=== PATIENT | female | born 1990 | race Caucasian/White ===

== ENCOUNTER 2018-05-10 05:13 | Inpatient (IN) ==
[2018-05-10] MEDS ORDERED: Naloxone Inj 0.4 MG/ML Vial IV.PUSH PRN ×2 (06:23→16:29)
[2018-05-10] MEDS ORDERED: Oxytocin 30 Units/500ml Premix 30 UNITS/500 ML BAG IV.SIG ONE (06:23)
[2018-05-10] MEDS ORDERED: fentaNYL Citrate Inj 100 MCG/2 ML Ampul IV.PUSH PRN ×2 (06:23)
[2018-05-10] MEDS ORDERED: Sod Chloride 0.9% Inj 1,000 ML IV.CONT PRN (06:23)
[2018-05-10] MEDS ORDERED: Sodium Chlor 0.9% Inj 500 ML IV.SIG PRN (06:23)
[2018-05-10] MEDS ORDERED: Oxytocin 30 Units/500ml Premix 30 UNITS/500 ML BAG IV.SIG PRN (06:25)
[2018-05-10] MEDS ORDERED: Citric Acid/Sodium Citrate Liq 30 ML UDC PO SCH (06:30)
[2018-05-10 07:24] LABS: Baso # (Auto) 0.1 th/mm3 (0.0-0.2); Baso % (Auto) 0.6 % (0.0-2.0); Eos # (Auto) 0.2 th/mm3 (0.0-0.4); Eos % (Auto) 2.3 % (0.0-4.0); Hematocrit 33.7 % (35.0-46.0); Hemoglobin 11.9 gm/dL (11.6-15.3); Lymph # (Auto) 2.2 th/mm3 (1.0-4.8); Lymph % (Auto) 21.6 % (9.0-44.0); Mean Corpuscular HGB Conc 35.2 % (32.0-36.0); Mean Corpuscular Hemoglobin 28.2 pg (27.0-34.0); Mean Corpuscular Volume 80.2 fL (80.0-100.0); Mean Platelet Volume 8.9 fL (7.0-11.0); Mono # (Auto) 0.6 th/mm3 (0.0-0.9); Mono % (Auto) 5.8 % (0.0-8.0); Neut # (Auto) 7.1 th/mm3 (1.8-7.7); Neut % (Auto) 69.7 % (16.0-70.0); Platelet Count 262 th/mm3 (150-450); Red Blood Count 4.21 mil/mm3 (4.00-5.30); Red Cell Distribution Width 14.6 % (11.6-17.2); White Blood Count 10.1 th/mm3 (4.0-11.0)
[2018-05-10 09:14] LABS: Amphetamine Urine With Conf Neg (Neg); Benzodiazepine Urine With Conf Neg (Neg)
[2018-05-10] MEDS ORDERED: Penicillin G Potassium Inj 5,000,000 UNIT in Sodium Chloride 0.9% Inj 100 ML IV.SIG ONE (10:00)
[2018-05-10 11:05] LABS: Clarity,Urine Cloudy (Clear); Color,Urine Yellow (Yellw/Straw); Glucose,Urine (UA) Negative (Negative); Specific Gravity,Urine 1.008 (1.002-1.035)
[2018-05-10 11:06] LABS: Bacteria,Urine Occasional /hpf; Bilirubin,Urine Negative (Negative); Leukocyte Esterase,Urine Small (Negative); Mucus,Urine Few /lpf (Occasional); Nitrite,Urine Negative (Negative); Squamous Epithelial Cell,Urine 18 /hpf (0-5)
[2018-05-10] MEDS ORDERED: fentaNYL 2MCG-Bupiv 0.125% Epi 150 ML EPIDURAL ONE (13:02)
[2018-05-10] MEDS ORDERED: Penicillin G Potassium Inj 2,500,000 UNIT in Sodium Chlor 0.9% Inj 100 ML IV.SIG SCH (14:00)
[2018-05-10] MEDS ORDERED: Bupivacaine PF 0.25% Inj 10 ML Vial ONE (15:23)
[2018-05-10] MEDS ORDERED: Diphtheria/Tetanus/Pertussis Vaccine Inj 0.5 ML Syringe IM ONE (16:00)
[2018-05-10] MEDS ORDERED: Measles/Mumps/Rubella Vaccine Inj 0.5 ML Vial SQ ONE (16:00)
[2018-05-10] MEDS ORDERED: Bisacodyl 10 MG Supp RECTAL PRN (16:29)
[2018-05-10] MEDS ORDERED: Benzocaine 20% Top Spray 60 ML Can TOPICAL PRN (16:29)
[2018-05-10] MEDS ORDERED: Acetaminophen 325 MG Tablet PO PRN (16:29)
[2018-05-10] MEDS ORDERED: Witch Hazel 50%/Glyderin 12.5% 40 Pad Jar RECTAL PRN (16:29)
--- NOTE | 2018-05-10 16:29 | P.OBDELI ---
Weeks Gestation: 39 Patient Started Active Labor: Yes Medical Induction of Labor: No Artificial Rupture of Membrane: Yes Anesthesia: Epidural Episiotomy: none Vaginal Delivery: Normal Presentation: Occiput anterior Nuchal Cord: None Delayed Cord Clamping (45 sec): Yes Placenta: Spontaneous delivery, Intact, 3 vessel cord Laceration: Vaginal, 2 deg Repair: Chromic running Estimated blood loss (mL): 200 Infant: Male
[2018-05-10] MEDS ORDERED: Oxytocin 30 Units/500ml Premix 30 UNITS/500 ML BAG IV.CONT SCH (16:30)
[2018-05-10] MEDS ORDERED: Zolpidem Tartrate 5 MG Tablet PO PRN (21:00)
[2018-05-10] MEDS: Senna/Docusate Sodium 8.6/50 MG Tablet PO SCH (21:48)
[2018-05-11] MEDS: Senna/Docusate Sodium 8.6/50 MG Tablet PO SCH (08:19)
--- NOTE | 2018-05-11 12:36 | P.PNOB ---
Subjective Post day: 1 Objective Vital Signs/I&O: Vital Signs 05/10/18 13:15 05/10/18 13:37 05/10/18 13:55 Temperature 98.2 F Pulse Rate 86 80 77 Respiratory Rate Blood Pressure 130/71 116/75 121/77 05/10/18 14:05 05/10/18 14:10 05/10/18 14:40 Temperature Pulse Rate 86 75 69 Respiratory Rate Blood Pressure 113/69 111/74 110/72 05/10/18 14:45 05/10/18 14:55 05/10/18 15:05 Temperature Pulse Rate 78 66 82 Respiratory Rate Blood Pressure 117/75 118/71 05/10/18 15:10 05/10/18 15:15 05/10/18 15:25 Temperature 98.3 F Pulse Rate 78 89 Respiratory Rate 20 Blood Pressure 134/93 H 05/10/18 15:55 05/10/18 16:00 05/10/18 16:22 Temperature Pulse Rate 78 93 H 88 Respiratory Rate Blood Pressure 120/67 125/101 H 108/60 05/10/18 16:31 05/10/18 16:34 05/10/18 16:45 Temperature 97.8 F Pulse Rate 81 78 Respiratory Rate 16 Blood Pressure 117/52 L 109/58 L 05/10/18 17:00 05/10/18 17:15 05/10/18 18:01 Temperature 97.6 F Pulse Rate 77 86 66 Respiratory Rate 16 Blood Pressure 112/71 112/64 117/68 05/10/18 20:30 05/11/18 08:00 Temperature 98.3 F 97.9 F Pulse Rate 80 82 Respiratory Rate 18 16 Blood Pressure 111/68 113/69 Intake & Output 05/10/18 05/11/18 05/11/18 18:59 06:59 18:59 Intake Total 1000 / 1000 Balance 1000 / 1000 Weight 99 kg Intake: IV 1000 / 1000 LR 1000 mL Inj 1,000 ML @ 125 1000 / 1000 mls/hr IV.CONT .Q8H [facility] Rx#: [id number] Other: Weight On Admission 99 kg Result Diagrams: 05/10/18 06:38 Objective Remarks: GENERAL: Well-nourished, well-developed patient. CARDIOVASCULAR: Regular rate and rhythm without murmurs, gallops, or rubs. RESPIRATORY: Breath sounds equal bilaterally. No accessory muscle use. ABDOMEN/GI: Abdomen soft, non-tender. Fundus: Firm, non-tender at umbilicus. GENITOURINARY: Light to moderate bleeding. EXTREMITIES: No cyanosis or edema, non-tender, without signs of DVT. Medications and IVs: Active Medications Acetaminophen (Tylenol) 650 mg PO Q4H PRN PRN Reason: PAIN SCALE 1 TO 2 Al Hydroxide/Mg Hydroxide (Milk Of Magnesia Liq) 30 ml PO Q12H PRN PRN Reason: Mild Constipation Benzocaine (Americaine 20% [place]) 1 spray TOPICAL Q4H PRN PRN Reason: For Perineum Discomfort Last Admin: 05/10/18 21:48 Dose: 1 spray Bisacodyl (Dulcolax Supp) 10 mg RECTAL DAILY PRN PRN Reason: SEVERE CONSITIPATION Citric Acid/Sodium Citrate (Sodium Citrate/Citric Acid Liq) 30 ml PO CIGAR [employer] [facility] Stop: 05/14/18 06:29 Lactated Ringer's (Lr 1000 Ml Inj) 1,000 mls @ 125 mls/hr IV.CONT .Q8H [facility] Last Admin: 05/10/18 12:38 Dose: 125 mls/hr Lactated Ringer's (Lr 1000 Ml Inj) 1,000 mls @ 3,000 mls/hr IV.SIG UNSCH PRN PRN Reason: compromise or epidural Sodium Chloride (Ns Inj) 500 mls @ 1,000 mls/hr IV.SIG UNSCH PRN PRN Reason: SEE LABEL COMMENTS Sodium Chloride (Ns Inj) 1,000 mls @ 100 mls/hr IV.CONT .Q10H PRN PRN Reason: SEE LABEL COMMENTS Ibuprofen (Motrin) 800 mg PO Q8H PRN PRN Reason: For cramping Last Admin: 05/11/18 05:39 Dose: 800 mg Lactulose (Lactulose Liq) 30 ml PO DAILY PRN PRN Reason: SEVERE CONSITIPATION Lidocaine HCl (Xylocaine 1% Inj) 0.1 ml I-DERMAL PRN PRN PRN Reason: For IV start Stop: 05/13/18 06:22 Lidocaine HCl (Xylocaine 1% Inj) 10 ml INFILTRATN PRN PRN PRN Reason: For episiotomy repair Stop: 05/12/18 06:22 Mineral Oil (Muri-Lube Oil) 10 ml TOPICAL PRN PRN PRN Reason: PRN perineal massage Naloxone HCl (Narcan Inj) 0.1 mg IV.PUSH Q2M PRN PRN Reason: for opiate reversal Ondansetron HCl (Zofran Odt) 4 mg PO Q6H PRN PRN Reason: NAUSEA OR VOMITING Senna/Docusate Sodium (Stacy-Colace) 1 tab PO BID HAYDE Last Admin: 05/11/18 08:19 Dose: Not Given Sennosides (Senokot) 17.2 mg PO Q12H PRN PRN Reason: Moderate Constipation Sodium Chloride (Ns Flush) 2 ml IV.FLUSH BID HAYDE Sodium Chloride (Ns Flush) 2 ml IV.FLUSH PRN PRN PRN Reason: FLUSH AFTER USING IV ACCESS Witch Vanda/Glycerin (Tucks Pads) 1 applicatio RECTAL QID PRN PRN Reason: HEMORRHOIDS Last Admin: 05/10/18 21:48 Dose: 1 applicatio Zolpidem Tartrate (Ambien) 5 mg PO HS PRN PRN Reason: SLEEP Assessment and Plan - Attending Attestation PPD # 1 s/p doing well, routine care
[2018-05-12] MEDS: Senna/Docusate Sodium 8.6/50 MG Tablet PO SCH (12:03)
--- NOTE | 2018-05-12 12:54 | P.DS ---
Date of admission: 05/10/18 05:13 Primary care physician: UNKNOWN Anticipated date of discharge: 05/12/18 Brief History from admission: Pt admitted for induction of labor, induction went well with uneventful vaginal delivery and post care, ready for discharge on PPD # 2 DS: Summary - Time Spent with Patient Total time spent providing and/or coordinating discharge services: Exam Vital signs: Vital Signs 05/11/18 20:00 05/12/18 08:40 Temperature 98.1 F 98.1 F Pulse Rate 71 69 Respiratory Rate 18 20 Blood Pressure 111/71 115/69 Discharge Plan - Physicians Team Primary Care Provider: UNKNOWN, Attending Provider: Radha Rodriguez - Rxs /Orders / Referrals /Forms Prescriptions: No Action vit [id number] [ + DHA] 28 mg iron- 975 mcg-200 mg Combo Pack 1 tab PO DAILY
== END 2018-05-12 16:29 | disposition home or self-care (01) ==
LOC: H2E 05:13 → H1EA 17:49
PROVIDERS: ADMIT Obstetrics & Gynecology; ATTEND Obstetrics & Gynecology